=== PATIENT | male | born 1985 ===

== ENCOUNTER 2017-06-30 20:25 | Emergency (ER) | payer OTHER ==
[2017-06-30 20:45] VITALS: BP 124/72; PULSE 109; RESP 20; TEMP 98.2; O2SAT 99
--- NOTE | 2017-06-30 20:49 | ED PDOC ---
HPI: General Adult Time Seen by Provider: 06/30/17 20:34 Chief Complaint (Nursing): Abnormal Skin Integrity Chief Complaint (Provider): Laceration History Per: Patient History/Exam Limitations: no limitations Onset/Duration Of Symptoms: Sudden Onset Current Symptoms Are (Timing): Still Present Additional Complaint(s): Maciej Flores is a 31 y/o right hand dominant male presenting to the ER on 2016 with a laceration to right thumb. Patient reports he sustained the injury just prior to arrival after he slipped and fell, causing him to cut his hand on a piece of glass that was on the floor. Last tetanus is unknown. He is able to bend affected digit without limitation and denies any FB sensation. Past Medical History Reviewed: Historical Data, Nursing Documentation, Vital Signs Vital Signs: Last Vital Signs Temp 98.2 F 06/30/17 20:41 Pulse 109 H 06/30/17 20:41 Resp 20 06/30/17 20:41 BP 124/72 06/30/17 20:41 Pulse Ox 99 06/30/17 21:29 - Medical History PMH: No Chronic Diseases - Surgical History Surgical History: No Surg Hx - Family History Family History: States: No Known Family Hx - Living Arrangements Living Arrangements: With Family - Social History Current smoker - smoking cessation education provided: No Alcohol: Social Drugs: Denies - Immunization History Hx Tetanus Toxoid Vaccination: No (not sure of last tetanus) - Allergies Allergies/Adverse Reactions: Allergies Allergy/AdvReac Type Severity Reaction Status Date / Time NSAIDS (Non-Steroidal AdvReac RASH Verified 06/30/17 20:45 Anti-Inflamma Review of Systems ROS Statement: Except As Marked, All Systems Reviewed And Found Negative Musculoskeletal: Positive for: Other (right thumb laceration) Neurological: Negative for: Weakness, Numbness Physical Exam - Reviewed Nursing Documentation Reviewed: Yes Vital Signs Reviewed: Yes - Physical Exam Appears: Positive for: Well, Non-toxic, No Acute Distress Skin: Positive for: Normal Color. Negative for: Rash Eye Exam: Positive for: Normal appearance Extremity: Positive for: Normal ROM, Other (2.0 cm linear vertical laceration to the palmar aspect of right thumb; mild active bleeding; no foreign body, full rom of affected digit, normal distal sensation). Negative for: Tenderness , Swelling Neurologic/Psych: Positive for: Alert, Oriented. Negative for: Motor/Sensory Deficits - ECG O2 Sat by Pulse Oximetry: 99 Pulse Ox Interpretation: Normal Medical Decision Making Medical Decision Makin:34 Initial Impression- 31 y/o male with laceration to the right first digit Initial Plan- * Laceration repair * 0.5 ml TDAP PROCEDURE: LACERATION REPAIR Performed by the emergency provider Location: Right first digit Length: 2.0 cm Anesthesia: Lidocaine 1%, 6 cc injected locally Preparation: The wound was cleaned with NS and Betadine. The area was prepped and draped in the usual sterile fashion. Exploration: The wound was explored and no foreign bodies were found. Procedure: 5.0 Nylon continuous running sutures were used to repair the wound Post-Procedure: Good closure and hemostasis< N/V intact. The patient tolerated the procedure well and there were no complications. Post procedure dressing applied. Patient was given wound care instructions. Advised wound check in 2 days and suture removal 14 days. Documented by Shauna Mcclendon, acting as a scribe for Mckayla Schultz PA-C All medical record entries made by the Scribe were at my direction and personally dictated by me. I have reviewed the chart and agree that the record accurately reflects my personal performance of the history, physical exam, medical decision making, and the department course for this patient. I have also personally directed, reviewed, and agree with the discharge instructions and disposition. Disposition - Clinical Impression Clinical Impression: Finger laceration, Requires a booster tetanus - Patient ED Disposition Is Patient to be Admitted: No Counseled Patient/Family Regarding: Diagnosis, Need For Followup - Disposition [facility]errals: [facility]] Disposition: Routine/Home Disposition Time: 21:36 Condition: STABLE Additional Instructions: Keep wound clean and dry. Tylenol as needed for pain. Wound check 2 days. Suture removal 10-14 days. Instructions: Finger Laceration (ED), Diphtheria/Acellular Pertussis/Tetanus Vaccine (DTaP) (By injection) Forms: [facility] (Tajik)
[2017-06-30] MEDS ORDERED: TDAP Vaccine 0.5 mL Syr IM ONE (21:18)
== END 2017-06-30 21:55 | disposition home or self-care (01) ==
LOC: H.ER 20:25
DX: S61.011A Laceration without foreign body of right thumb without damage to nail, initial encounter (principal); W25.XXXA Contact with sharp glass, initial encounter; Y92.89 Other specified places as the place of occurrence of the external cause